=== PATIENT | female | born 1980 | race Caucasian/White ===

== ENCOUNTER 2019-11-21 07:33 | Outpatient (CLI) | payer OTHER, SELFPAY ==
[2019-11-24 21:10] LABS: SARS-CoV-2 RNA Undetected (Undetected); SARS-CoV-2 Specimen Source Nasopharynx
== END 2019-11-21 07:53 ==
PROVIDERS: PCP Family Medicine; Visit Provider Family Medicine
DX: Z11.59 Encounter for screening for other viral diseases (principal)
CPT/HCPCS: U0003

== ENCOUNTER → 2020-01-21 19:14 | Outpatient (REF) | payer OTHER, SELFPAY ==
--- NOTE | 2020-01-21 14:30 | PAPFT_PTH ---
PATIENT: Lily Tenorio LOC: [facility] U#:[id number] AGE/SX: 45/F ROOM: RE01/21/[address]: Malinda Rangel : 1980 BED: DIS: SPEC #: [id number] RECD: 01/22/20 12:53 STATUS: CELESTINO [place] #: [id number] EDA: 01/21/20 14:[address]: Malinda Rangel DEPT: [facility] Cytology RECD BY: Ratna Min Tissues: 1 - CX/ENDOCX FOR PAP SMEARS Procedures: PAP THIN PREP/[facility] Screening Comments: [id number] (UNSATISFACTORY FOR EVALUATION)
== END ==
LOC: NCHCN 19:14
PROVIDERS: PCP Family Medicine; Visit Provider Family Medicine
DX: R87.615 Unsatisfactory cytologic smear of cervix (principal)
CPT/HCPCS: 88142

== ENCOUNTER 2020-04-09 04:19 | Outpatient (CLI) | payer OTHER, SELFPAY ==
[2020-04-14 02:02] LABS: Patient Race White; SARS-CoV-2 RNA Undetected (Undetected); SARS-CoV-2 Specimen Source Nasal
== END 2020-04-09 04:39 ==
PROVIDERS: PCP Family Medicine; Visit Provider Family Medicine
DX: Z20.828 Contact with and (suspected) exposure to other viral communicable diseases (principal)
CPT/HCPCS: U0003

== ENCOUNTER 2020-10-28 18:23 | Outpatient (REF) | payer OTHER, SELFPAY ==
--- NOTE | 2020-10-28 15:00 | PAPFT_PTH ---
PATIENT: Lily Tenorio LOC: [facility] U#:[id number] AGE/SX: 40/F ROOM: RE10/28/[address]: Malinda Rangel : 1980 BED: DIS: 10/28/2020 SPEC #: [id number] RECD: 10/29/20 12:52 STATUS: CELESTINO REShavon #: [id number] EDA: 10/28/20 15:[address]: Malinda Rangel DEPT: [facility] Cytology RECD BY: Ratna Min Tissues: 1 - CX/ENDOCX FOR PAP SMEARS Procedures: PAP THIN PREP/[facility] Screening HPV DNA PROBE Comments: [id number]
== END 2020-10-28 18:24 | disposition home or self-care (01) ==
LOC: NCHCN 18:23
PROVIDERS: PCP Family Medicine; Visit Provider Family Medicine
DX: Z00.00 Encounter for general adult medical examination without abnormal findings (principal); Z12.4 Encounter for screening for malignant neoplasm of cervix; Z01.419 Encounter for gynecological examination (general) (routine) without abnormal findings; Z11.51 Encounter for screening for human papillomavirus (HPV)
CPT/HCPCS: 88142; 87624

== ENCOUNTER 2025-03-20 18:40 | Outpatient (REF) | payer OTHER, SELFPAY ==
[2025-03-20 21:18] LABS: Calculated LDL 91 mg/dL (<100); Cholesterol 173 mg/dL (<200); HDL Cholesterol 69 mg/dL (>or=50); Triglyceride 66 mg/dL (<150)
== END 2025-03-20 18:41 | disposition home or self-care (01) ==
LOC: NCHCN 18:40
PROVIDERS: PCP Family Medicine; Visit Provider Family Medicine
DX: Z00.00 Encounter for general adult medical examination without abnormal findings (principal)
CPT/HCPCS: 80061

== ENCOUNTER → 2025-04-03 03:17 | Outpatient (CLI) | payer OTHER, SELFPAY ==
--- NOTE | 2025-04-03 | DI.MAMMO_ITS ---
Exam(s) MAMMO SCREENING EXAM: MAMMO SCREENING CLINICAL HISTORY: SCREENING MAMMO Z12.31. TECHNIQUE: Bilateral full field digital CC and MLO mammographic images were obtained with 3D tomosynthesis and utilizing computer aided detection (CAD). COMPARISON: Prior mammograms were reviewed. FINDINGS: There is asymmetric breast size. The right breast is smaller than the left. Fibroglandular tissue pattern is heterogeneously dense. There are no obvious spiculated masses nor malignant appearing microcalcification groups. There is no significant architectural distortion nor skin thickening-retraction. IMPRESSION: No radiographic evidence of malignancy. Asymmetric breast size. BI-RADS Category 2 - Benign Findings Breast Density - Category C - The breast are heterogeneously dense, which may obscure small masses. Breast density Category C or D implies that the patient has dense breast tissue. Dense breast tissue can make it harder to find cancer on a mammogram. Dense breast tissue is also associated with an increased risk of breast cancer. This information about the result of the mammogram report was provided to the patient to raise their awareness. Use this report when you speak with the patient about their risks for breast cancer, which includes their family history. At that time, you may recommend additional screening tests (Ultrasound or MRI) as these tests may add significant information. A negative radiographic report should not delay biopsy if a dominant or clinically suspicious mass is present. Up to ten percent of cancers are not identified on mammography. A negative report may reinforce clinical impression. Adenosis and dense breasts may obscure an underlying neoplasm. False positive reports average 6 to 10%. Patient will receive a letter notifying them of these results.
== END ==
PROVIDERS: PCP Family Medicine; Visit Provider Family Medicine
DX: Z12.31 Encounter for screening mammogram for malignant neoplasm of breast (principal); R92.323 Mammographic fibroglandular density, bilateral breasts
CPT/HCPCS: 77063; 77067